=== PATIENT | female | born 1975 | race Caucasian/White ===

== ENCOUNTER → 2020-02-19 | Outpatient (CLI) | payer OTHER ==
[~2020-02-19] MED LIST: ADZENYS XR-OD18.8 MG PO; MELOXICAM7.5 MG PO; ROBAXIN 750 MG750 MG PO
== END ==
LOC: RAD 09:49
DX: M51.36 Other intervertebral disc degeneration, lumbar region (principal)

== ENCOUNTER → 2020-02-19 | Outpatient (CLI) | payer OTHER | LOC: LAB 11:58 | DX: Z01.812 Encounter for preprocedural laboratory examination (principal); Z20.828 Contact with and (suspected) exposure to other viral communicable diseases ==

== ENCOUNTER 2020-02-20 06:22 | Day surgery (SDC) | payer OTHER ==
[2020-02-19 12:49] LABS: BASOPHILS 1.2 % (0.0-2.0); EOSINOPHILS 1.2 % (0.0-3.0); HEMATOCRIT 40.4 % (37.0-47.0); HEMOGLOBIN 13.5 gm/dL (12.0-15.0); LYMPHOCYTES 23.1 % (24.0-44.0); MCH 31.4 pg (26.0-34.0); MCHC 33.5 g/dL (28.0-37.0); MCV 93.6 fL (80.0-100.0); MONOCYTES 11.1 % (1.0-8.0); PLATELET COUNT 442 thou/uL (150-400); POLYS 63.4 % (36.0-66.0); RBC 4.31 mil/uL (4.20-5.00); RDW 12.5 % (10.5-14.5); WBC 6.3 thou/uL (4.0-11.0)
[2020-02-19 13:00] LABS: APTT 28.3 Seconds (24.5-32.8); PROTIME 10.3 Seconds (9.3-11.4); URINE BILIRUBIN NEGATIVE (Negative); URINE BLOOD NEGATIVE (Negative); URINE CLARITY CLEAR; URINE COLOR YELLOW; URINE GLUCOSE-RANDOM* NEGATIVE (Negative); URINE KETONES NEGATIVE (Negative); URINE LEUKOCYTES-REFLEX NEGATIVE (Negative); URINE NITRITE-REFLEX NEGATIVE (Negative); URINE PROTEIN (DIPSTICK) NEGATIVE (Negative); URINE UROBILINOGEN 0.2 E.U./dl (0.2-1.0)
[2020-02-19 13:09] LABS: ALBUMIN 4.2 g/dL (3.4-5.0); CALCIUM 8.8 mg/dL (8.5-10.1); POTASSIUM 3.8 mmol/L (3.5-5.1); TOTAL BILIRUBIN 0.8 mg/dL (0.2-1.0); TOTAL PROTEIN 7.5 g/dL (6.4-8.2)
[~2020-02-20] VITALS: Ht 175.3 cm; Wt 79.4 kg
[2020-02-20 08:33] VITALS: BP 120/76
--- NOTE | 2020-02-20 09:39 | O ---
[facility] [place] [address] OPERATIVE REPORT Name: RAS JOSHI Room #: 150-3 [facility]..#: [id number] Admission: 02/20/20 Attend Phys: Wil Cobb MD Discharge: Date of : 79 Report #: [id number] THIS REPORT FOR: cc: GLENDA - Family physician unknown GLENDA - Family physician unknown Wil Cobb MD ~ CC: GLENDA Cobb DATE OF SERVICE: 02/20/2020 The patient is a 44-year-old female. PREOPERATIVE DIAGNOSES: Recurrent left L4-L5 herniated nucleus pulposus with left L5 radiculopathy. POSTOPERATIVE DIAGNOSES: Recurrent left L4-L5 herniated nucleus pulposus with left L5 radiculopathy. SURGERY: Left L4-L5 redo laminectomy, partial facetectomy with dissection to remove disk and free fragment. SURGEON: Wil Cobb M.D. WELDER FABRICATOR SURGEON: Holly Rachel PA-C ANESTHESIA: General via endotracheal tube. INDICATIONS: The patient has had intractable back and left leg pain in L5 nerve root distribution and she fell down a flight of stairs and immediately re-herniated at the L4-L5 level. She has proved refractory to all forms of multimodality conservative therapy and is requesting we proceed with operative intervention. She understands the risks of surgery to be , DVT, pulmonary embolism, paraplegia, loss of bowel and bladder function, loss of sexual function, the possibility of bleeding, bleeding requiring transfusion, transfusion attendant risks of AIDS and hepatitis infection, instability, the need for revision, prolonged hospital stay, dural leak, spinal headache, infection and again she requested we proceed. She understood the small chance of recurrence as this is the third surgery at the L4-L5 disk on the left. DESCRIPTION OF PROCEDURE: The patient was brought to the operating room and administered general anesthesia via endotracheal tube. Lower extremities were treated with ASHUTOSH hose and intermittent compression stockings. She was positioned on the [facility] in the prone position with all bony prominences padded appropriately, having been MRSA culture positive, she was treated with perioperative antibiotic, vancomycin. She was positioned on the [address] [address] OPERATIVE REPORT Name: RAS JOSHI Room #: 150-3 [facility].#: [id number] Admission: 02/20/20 Attend Phys: Wil Cobb MD Discharge: Date of : 79 Report #: [id number] in the prone position with all bony prominences padded appropriately. Care was taken to ensure the shoulders were not abducted more than 90 degrees, the elbows flexed more than 90 degrees and no undue pressure in the cubital or carpal canals. Due to the fact that this was a third surgery, I did do after sterile prep and drape, an infiltration of the skin with 0.5% Marcaine and localization with fluoroscopy, we did do a scar revision. We ellipsed out the old scar and then at the end of the case, we do a subcuticular closure. After incision an ellipse of the scar, we carried the dissection down through the scar to the subcutaneous and through the subcutaneous tissues to the level of the deep fascia. Subperiosteal dissection of L4 and L5 spinous processes and lamina ensued. We set deep self-retaining retractor. We were able to get adequate visualization with . We then began the process of the redo exposure, debulked the scar at the L4-L5 previous laminotomy site and then defined the plane with micro curettes to separate the underlying scarred dura from the previous laminotomy site from the bones are ligament, whichever were the case. Once we had the dura mobilized, we widened the laminotomy both distally, laterally and cephalad. We then performed partial facetectomy to make sure that we were flush with the pedicle and in fact we could see the medial wall of the pedicle and the nerve root coursing alongside. We carefully dissected up from the pedicle dissecting the nerve root off the pedicle and the vertebral body. As we approached the disk, we encountered large mass effect almost the sac structure with multiple pieces of disk and it directly impinging the L5 nerve root. The nerve root was dissected and freed almost to the midline and we continued dissection with a nerve hook and at times, a [place] 4 mobilizing until we had the L5 nerve root, completely free in its course dissecting almost to the midline. We were able to retrieve more disk material. We entered the disk and performed a diskectomy. Then, at the completion, we palpated under the nerve root well be to the midline with a [place] dental elevator, we palpated the nerve root out through the neural foramen and above the disk space and it was completely free. We copiously irrigated with a liter of antibiotic-containing solution. We placed pledgets thrombin-soaked Gelfoam over the spinal canal. We obtained meticulous hemostasis. We closed the deep fascial layer with 0 Ethibond in [id number] interrupted fashion, deep subcutaneous with 0 Vicryl, superficial subcutaneous 2-0 Vicryl, skin with subcuticular 3-0 dressed with benzoin, Steri-Strips, Xeroform, sterile dressing sponges and a bioclusive. The patient tolerated the procedure well. There were no technical misadventures and she was being transported to the recovery room for closer neurovascular observation discharge to the floor when stable. Final blood loss was about 20 mL. There were no technical misadventures, no complications. The patient was physiologically stable. <ELECTRONICALLY SIGNED> By: Wil Cobb MD 02/20/20 [id number] Wil Cobb MD /nt
--- NOTE | 2020-02-20 13:15 | NUR ---
PATIENT ADMITTED FROM OR WITH REDO LUMBAR DISCECTOMY, PATIENT HAS DRY GUAZE WITH TEGADERM IN PLACE. PATIENT DENIES NAUSEA, PATIENT HAS CLEAR LIQUID DIET. C/O PAIN WITH LOW-BACK AREA, 12/31. 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 DILAUDID 0.2MG Q6MIN WITH 2MG/HR LOCKOUT. PATIENT HAS LEFT HAND IV 20G IN PLACE. SCD'S, ASHUTOSH HOSE IN PLACE. PATIENT C/O NEEDING TO URINATE, BUT WAS HAVING DIFFICULTY, BLADDER SCAN DONE 511 CC NOTED FROM BLADDER SCAN. PATIENT ASSISTED UP TO THE BSC, URINATED AND BATSHEVA SHE FEELS BETTER. ADMISSION COMPLETED AND REPORT GIVEN TO NUVIA.
[2020-02-20 20:10] VITALS: BP 106/74
[2020-02-21 00:19] VITALS: BP 103/69
--- NOTE | 2020-02-21 03:11 | NUR ---
ASSESSED AT SHIFT PT A&OX4. C/O NAUSEA, MEDS GIVEN SEE EMAR. IV INTACT FLUIDS AND EXERCISER PUMP IN PLACE. PT UP WITH SBA TO THE BSC. SCD'S, TEDHOSE AND FALL PREC INTACT. PT ON CAPNEA MONITOR. ALLISON DIET WELL. PAIN 8/10 ON A DILAUDID EXERCISER PUMP. WILL CONT WITH POC TILL EOS.
[2020-02-21 04:18] VITALS: BP 100/57
[2020-02-21 06:27] LABS: ABSOLUTE NEUTROPHILS 15.1 thou/uL (1.4-8.2); BASOPHILS 0.2 % (0.0-2.0); EOSINOPHILS 0.1 % (0.0-3.0); HEMATOCRIT 33.9 % (37.0-47.0); LYMPHOCYTES 9.6 % (24.0-44.0); MCH 31.4 pg (26.0-34.0); MCHC 33.4 g/dL (28.0-37.0); MONOCYTES 9.4 % (1.0-8.0); POLYS 80.7 % (36.0-66.0); RDW 12.4 % (10.5-14.5); WBC 18.7 thou/uL (4.0-11.0)
[2020-02-21 06:46] LABS: CALCIUM 7.8 mg/dL (8.5-10.1); CREATININE 0.9 mg/dL (0.6-1.0); MAGNESIUM 1.7 mg/dL (1.8-2.4); POTASSIUM 3.8 mmol/L (3.5-5.1)
[2020-02-21 06:52] LABS: HEMOGLOBIN 11.3 gm/dL (12.0-15.0)
[2020-02-21 06:53] LABS: PLATELET COUNT 344 thou/uL (150-400)
[2020-02-21 11:52] VITALS: BP 100/57
[2020-02-21] MEDS ORDERED: PERCOCET 10-321 EACH PO (11:54)
--- NOTE | 2020-02-21 11:55 | NUR ---
Case discussed with the care team. Pt has been seen by surgery and PT and cleared for dc home today. Pt lives with her spouse and was indep prior to surgery. Pt has two steps to enter her home. Therapy recommending a rwalker for home use. Script and referral given to inhouse liason for [employer] who will issue the pt a rwalker prior to dc today. No other dc planning needs indicated.
[2020-02-21] MEDS ORDERED: ASA81BEC PO (11:56)
[2020-02-21] MEDS ORDERED: COLACE100 MG PO (11:56)
[2020-02-21] MEDS ORDERED: MIRALAX17 GM PO (11:56)
[2020-02-21] MEDS ORDERED: MUPIROCIN22 GM TOP (11:56)
[2020-02-21 12:20] VITALS: BP 100/57
--- NOTE | 2020-02-21 12:21 | NUR ---
PT IS AOX4, VSS, PAIN IN BACK CONTROLLED BY ORAL ANALGESIC. PT DENIES N/V, AMBULATES WELL WITH WALKER. IV DC'D, CALL LIGHT IN REACH. WILL CONTINUE TO MONITOR.
== END 2020-02-21 13:20 | disposition home or self-care (01) ==
LOC: 4S 06:22 → OR 06:22 → TBA 06:22 → 4S 11:17 → OR 11:28
PROVIDERS: Nurse Practitioner; ATTEND Hospitalist
DX: M51.16 Intervertebral disc disorders with radiculopathy, lumbar region (principal); M54.5 Low back pain; Z98.890 Other specified postprocedural states; Z79.899 Other long term (current) drug therapy; Z79.82 Long term (current) use of aspirin
CPT/HCPCS: 50010; 50101; 50402; 50850; 51878; 56524; 56526; 56529; 62110; 62900; 70005